=== PATIENT | female | born 1940 | race Caucasian/White ===

== ENCOUNTER 2020-01-14 10:33 | Inpatient (IN) | payer MEDICARE, MEDICAID ==
[~2020-01-14] VITALS: Ht 165.1 cm; Wt 79.0 kg
[~2020-01-14 10:33] MED LIST: ALEN70TA2; ALPR0.5T; ASPI81CH43; ATEN50TA; GEMF600T; OME20GT; PREMARIN; VALS160T51
[2020-01-14 11:40] LABS: Basophils # (auto) 0 10 ^3/uL (0-0.2); Eosinophils # (auto) 0.2 10 ^3/uL (0-0.8); Hemoglobin 11.9 g/dL (12.2-16.2); Lymphocytes # (auto) 1.5 10 ^3/uL (0.4-5.4); Nucleated Red Blood Cells % 0.1 %; White Blood Cell 5.7 10^3/uL (4.4-10.8)
[2020-01-14 11:42] LABS: Basophils % (auto) 0.6 % (0.0-2.0); Eosinophils % (auto) 2.8 % (0.0-7.0); Hematocrit 36.7 % (36.0-46.0); Lymphocytes % (auto) 26.2 % (10.0-50.0); Mean Corpuscular Hemoglobin 26.7 pg (28.0-32.0); Mean Corpuscular Hgb Conc. 32.5 g/dL (32.0-36.0); Mean Corpuscular Volume 82.2 fL (80.0-100.0); Monocytes # (auto) 0.5 10 ^3/uL (0-1.3); Monocytes % (auto) 9.1 % (0.0-12.0); Neutrophils # (auto) 3.5 10 ^3/uL (1.6-8.6); Neutrophils % (auto) 61.3 % (37.0-80.0); Platelet Count (auto) 229 10^3/uL (140-450); Red Blood Cells 4.47 10^6/uL (4.0-5.20); Red Cell Distribution Width 16.3 % (11.8-14.3)
[2020-01-14 12:19] LABS: Albumin 3.2 g/dL (3.4-5.0); Anion Gap 9 (5-15); Blood Urea Nitrogen 12 mg/dL (7-18); Calcium 9.3 mg/dL (8.5-10.1); Carbon Dioxide 24 mmol/L (21-32); Chloride 97 mmol/L (98-107); Glucose 87 mg/dL (74-106); Sodium 130 mmol/L (136-145)
[2020-01-14 12:26] LABS: Alanine Aminotransferase 19 U/L (13-56); Alkaline Phosphatase 89 U/L (45-117); Aspartate Aminotransferase 24 U/L (15-37); BUN/Creatinine Ratio 12.9; Bilirubin, Total 0.5 mg/dL (0.2-1.0); GFR African American 75 mL/min; GFR Non-African American 62 mL/min; Total Protein 6.8 g/dL (6.4-8.2)
[2020-01-14] MEDS ORDERED: ALBUTEROL SULF 2.5 MG/0.5ML(0.5%) NEB SOLN NEB PRN (15:30)
[2020-01-14] MEDS ORDERED: NITROGLYCERIN 0.4 MG SL TAB SL PRN (15:30)
[2020-01-14] MEDS ORDERED: DEXTROSE (50%) 50ML SYRG IV PRN (15:30)
[2020-01-14] MEDS ORDERED: ACETAMINOPHEN 500 MG TAB PO PRN (15:30)
[2020-01-14] MEDS ORDERED: TEMAZEPAM 15 MG CAP PO PRN (15:30)
[2020-01-14] MEDS ORDERED: MORPHINE SULF INJ 2 MG/ML SYRINGE 1ML IV PRN ×2 (15:30)
[2020-01-14] MEDS: SODIUM CHLORIDE 0.9% 1,000 ML IV SCH (15:50)
[2020-01-14] MEDS: InsuLIN REG 1unit/0.01ml Soln (100units/ml) SC SCH ×2 (17:55→22:00)
[2020-01-14] MEDS: ACCU-CHEK COMFORT CURVE STRIP VI SCH ×2 (17:55→22:04)
[2020-01-14] MEDS: ALBUTEROL SULF 2.5 MG/0.5ML(0.5%) NEB SOLN NEB SCH (18:00)
[2020-01-14] MEDS: IPRATROPIUM BROM 0.5 MG/2.5ML INH SOL NEB SCH (18:00)
[2020-01-14] MEDS: ONDANSETRON HCL 4 MG/2 ML VIAL IV PRN (20:01)
[2020-01-14] MEDS ORDERED: INFLUENZA QUAD 2020-2021 0.5 ML SYRG IM ONE (23:45)
[2020-01-15] VITALS (7 sets, daily range): BP systolic 125–167; BP diastolic 67–92
[2020-01-15] MEDS: traMADol HCL 50 MG TAB PO PRN (00:36)
[2020-01-15] MEDS: SODIUM CHLORIDE 0.9% 1,000 ML IV SCH ×2 (04:50→18:10)
[2020-01-15] MEDS ORDERED: DILT60TA27 PO (05:31)
[2020-01-15 05:36] LABS: Basophils # (auto) 0 10 ^3/uL (0-0.2); Basophils % (auto) 0.6 % (0.0-2.0); Eosinophils # (auto) 0.2 10 ^3/uL (0-0.8); Eosinophils % (auto) 4.2 % (0.0-7.0); Hematocrit 34.8 % (36.0-46.0); Hemoglobin 11.2 g/dL (12.2-16.2); Lymphocytes # (auto) 1.5 10 ^3/uL (0.4-5.4); Lymphocytes % (auto) 27.3 % (10.0-50.0); Mean Corpuscular Hemoglobin 26.6 pg (28.0-32.0); Mean Corpuscular Hgb Conc. 32.1 g/dL (32.0-36.0); Monocytes # (auto) 0.5 10 ^3/uL (0-1.3); Monocytes % (auto) 9.2 % (0.0-12.0); Neutrophils # (auto) 3.2 10 ^3/uL (1.6-8.6); Neutrophils % (auto) 58.7 % (37.0-80.0); Nucleated Red Blood Cells % 0.1 %; Platelet Count (auto) 208 10^3/uL (140-450); Red Blood Cells 4.19 10^6/uL (4.0-5.20); Red Cell Distribution Width 16.1 % (11.8-14.3); White Blood Cell 5.5 10^3/uL (4.4-10.8)
[2020-01-15] MEDS ORDERED: ROSU5TAB5 PO (05:37)
[2020-01-15] MEDS ORDERED: METF-370 PO (05:37)
[2020-01-15] MEDS ORDERED: ALEN1TAB32 PO (05:37)
[2020-01-15] MEDS ORDERED: FLUT1AER3 IN (05:37)
[2020-01-15] MEDS ORDERED: LOSA25TA38 PO (05:37)
[2020-01-15] MEDS ORDERED: APIX5TAB PO (05:37)
[2020-01-15] MEDS ORDERED: TEMA30CA PO (05:37)
[2020-01-15] MEDS ORDERED: GABA300C10 PO (05:37)
[2020-01-15] MEDS ORDERED: POTA10TA51 PO (05:37)
[2020-01-15] MEDS ORDERED: HCTZ25T PO (05:37)
[2020-01-15] MEDS ORDERED: MAGN400T40 PO (05:37)
[2020-01-15 05:56] LABS: Calcium 8.8 mg/dL (8.5-10.1)
[2020-01-15 06:02] LABS: Albumin 2.9 g/dL (3.4-5.0); BUN/Creatinine Ratio 16.1; Bilirubin, Total 0.3 mg/dL (0.2-1.0); Total Protein 6.1 g/dL (6.4-8.2)
[2020-01-15] MEDS: InsuLIN REG 1unit/0.01ml Soln (100units/ml) SC SCH ×4 (07:00→21:43)
[2020-01-15] MEDS: ACCU-CHEK COMFORT CURVE STRIP VI SCH ×4 (07:01→21:25)
[2020-01-15] MEDS: IPRATROPIUM BROM 0.5 MG/2.5ML INH SOL NEB SCH ×3 (07:02→21:42)
[2020-01-15] MEDS: ALBUTEROL SULF 2.5 MG/0.5ML(0.5%) NEB SOLN NEB SCH ×3 (07:02→21:42)
[2020-01-15] MEDS: cefTRIAXone 1GM/50ML D5W 50 ML IV SCH (10:10)
[2020-01-15] MEDS: ONDANSETRON HCL 4 MG/2 ML VIAL IV PRN ×3 (10:53→21:25)
[2020-01-15] MEDS: CLINDAMYCIN 600MG IV 50 ML IV SCH ×2 (15:37→21:24)
[2020-01-15 16:23] LABS: INR 1.01 (0.9-1.15); Partial Thromboplastin Time 27.6 sec (23.0-31.2)
[2020-01-16] VITALS (13 sets, daily range): BP systolic 123–196; BP diastolic 43–85
[2020-01-16] MEDS: ONDANSETRON HCL 4 MG/2 ML VIAL IV PRN ×4 (03:45→19:52)
[2020-01-16] MEDS: traMADol HCL 50 MG TAB PO PRN ×4 (03:52→19:52)
[2020-01-16 05:39] LABS: Basophils # (auto) 0 10 ^3/uL (0-0.2); Basophils % (auto) 0.4 % (0.0-2.0); Eosinophils # (auto) 0.1 10 ^3/uL (0-0.8); Hematocrit 35.5 % (36.0-46.0); Hemoglobin 11.5 g/dL (12.2-16.2); Lymphocytes # (auto) 1.2 10 ^3/uL (0.4-5.4); Mean Corpuscular Hemoglobin 26.7 pg (28.0-32.0); Mean Corpuscular Hgb Conc. 32.3 g/dL (32.0-36.0); Mean Corpuscular Volume 82.5 fL (80.0-100.0); Monocytes # (auto) 0.4 10 ^3/uL (0-1.3); Monocytes % (auto) 7.2 % (0.0-12.0); Neutrophils # (auto) 4.4 10 ^3/uL (1.6-8.6); Neutrophils % (auto) 70.4 % (37.0-80.0); Nucleated Red Blood Cells % 0.1 %; Platelet Count (auto) 226 10^3/uL (140-450); Red Blood Cells 4.31 10^6/uL (4.0-5.20); Red Cell Distribution Width 16.3 % (11.8-14.3); White Blood Cell 6.2 10^3/uL (4.4-10.8)
[2020-01-16 05:57] LABS: Calcium 9.2 mg/dL (8.5-10.1); Potassium 3.9 mmol/L (3.5-5.1)
[2020-01-16 06:03] LABS: INR 0.99 (0.9-1.15); Partial Thromboplastin Time 26.5 sec (23.0-31.2)
[2020-01-16] MEDS: IPRATROPIUM BROM 0.5 MG/2.5ML INH SOL NEB SCH ×4 (06:04→18:11)
[2020-01-16] MEDS: ALBUTEROL SULF 2.5 MG/0.5ML(0.5%) NEB SOLN NEB SCH ×4 (06:04→18:11)
[2020-01-16] MEDS: CLINDAMYCIN 600MG IV 50 ML IV SCH ×3 (06:35→21:41)
[2020-01-16] MEDS: InsuLIN REG 1unit/0.01ml Soln (100units/ml) SC SCH ×4 (06:35→21:26)
[2020-01-16] MEDS: ACCU-CHEK COMFORT CURVE STRIP VI SCH ×4 (06:35→21:41)
[2020-01-16] MEDS: LOSARTAN POTASSIUM 25 MG TAB PO SCH (06:57)
[2020-01-16] MEDS: SODIUM CHLORIDE 0.9% 1,000 ML IV SCH ×2 (07:30→21:25)
[2020-01-16] MEDS: cefTRIAXone 1GM/50ML D5W 50 ML IV SCH (08:57)
[2020-01-16] MEDS ORDERED: DexAMETHasone SOD PHOS 4 MG/1ML SDV INJ IV ONE (10:45)
[2020-01-16] MEDS ORDERED: PANTOPRAZOLE 40 MG/10 ML VIAL INJ IV ONE (10:45)
[2020-01-16] MEDS: TEMAZEPAM 15 MG CAP PO PRN (21:41)
[2020-01-16] MEDS: DexAMETHasone SOD PHOS 4 MG/1ML SDV INJ IV SCH (21:41)
[2020-01-17] MEDS: IPRATROPIUM BROM 0.5 MG/2.5ML INH SOL NEB SCH ×5 (00:08→23:55)
[2020-01-17] MEDS: ALBUTEROL SULF 2.5 MG/0.5ML(0.5%) NEB SOLN NEB SCH ×5 (00:08→23:55)
[2020-01-17] MEDS: traMADol HCL 50 MG TAB PO PRN ×3 (00:13→20:12)
[2020-01-17] MEDS: ONDANSETRON HCL 4 MG/2 ML VIAL IV PRN ×3 (00:13→20:12)
[2020-01-17] MEDS: CLINDAMYCIN 600MG IV 50 ML IV SCH (05:38)
[2020-01-17] MEDS ORDERED: cloNIDine HCL 0.1 MG TAB PO ONE (06:15)
[2020-01-17] MEDS: InsuLIN REG 1unit/0.01ml Soln (100units/ml) SC SCH ×4 (06:18→22:00)
[2020-01-17] MEDS: ACCU-CHEK COMFORT CURVE STRIP VI SCH ×4 (06:28→22:00)
[2020-01-17 08:42] VITALS: BP 160/77
[2020-01-17] MEDS: PANTOPRAZOLE 40 MG/10 ML VIAL INJ IV SCH (09:19)
[2020-01-17] MEDS: DexAMETHasone SOD PHOS 4 MG/1ML SDV INJ IV SCH ×2 (09:20→22:00)
[2020-01-17] MEDS: LOSARTAN POTASSIUM 25 MG TAB PO SCH (09:20)
[2020-01-17] MEDS: cefTRIAXone 1GM/50ML D5W 50 ML IV SCH (09:20)
[2020-01-17] MEDS: SODIUM CHLORIDE 0.9% 1,000 ML IV SCH ×2 (10:10→23:30)
[2020-01-17 12:16] VITALS: BP 132/76
[2020-01-17 16:44] VITALS: BP 128/68
[2020-01-17 17:12] VITALS: BP 128/68
[2020-01-17 22:00] VITALS: BP 150/67
[2020-01-17] MEDS: TEMAZEPAM 15 MG CAP PO PRN (22:05)
[2020-01-18] MEDS: traMADol HCL 50 MG TAB PO PRN ×4 (04:00→19:56)
[2020-01-18 05:00] VITALS: BP 156/74
[2020-01-18 05:29] LABS: Basophils # (auto) 0 10 ^3/uL (0-0.2); Basophils % (auto) 0.1 % (0.0-2.0); Eosinophils # (auto) 0 10 ^3/uL (0-0.8); Eosinophils % (auto) 0.1 % (0.0-7.0); Hematocrit 34.2 % (36.0-46.0); Hemoglobin 10.9 g/dL (12.2-16.2); Lymphocytes # (auto) 0.7 10 ^3/uL (0.4-5.4); Lymphocytes % (auto) 7.9 % (10.0-50.0); Mean Corpuscular Hemoglobin 26.5 pg (28.0-32.0); Mean Corpuscular Hgb Conc. 31.8 g/dL (32.0-36.0); Mean Corpuscular Volume 83.3 fL (80.0-100.0); Monocytes # (auto) 0.2 10 ^3/uL (0-1.3); Monocytes % (auto) 2.2 % (0.0-12.0); Neutrophils # (auto) 8.4 10 ^3/uL (1.6-8.6); Neutrophils % (auto) 89.7 % (37.0-80.0); Platelet Count (auto) 221 10^3/uL (140-450); Red Blood Cells 4.11 10^6/uL (4.0-5.20); Red Cell Distribution Width 16.9 % (11.8-14.3); White Blood Cell 9.4 10^3/uL (4.4-10.8)
[2020-01-18 05:46] LABS: Calcium 8.9 mg/dL (8.5-10.1); Potassium 4.3 mmol/L (3.5-5.1)
[2020-01-18 05:48] LABS: BUN/Creatinine Ratio 23.6
[2020-01-18] MEDS: ALBUTEROL SULF 2.5 MG/0.5ML(0.5%) NEB SOLN NEB SCH ×3 (05:50→19:17)
[2020-01-18] MEDS: IPRATROPIUM BROM 0.5 MG/2.5ML INH SOL NEB SCH ×3 (05:50→19:17)
[2020-01-18] MEDS ORDERED: DOCUSATE SOD 100 MG CAP PO PRN (06:00)
[2020-01-18] MEDS: ACCU-CHEK COMFORT CURVE STRIP VI SCH ×4 (06:14→22:01)
[2020-01-18] MEDS: InsuLIN REG 1unit/0.01ml Soln (100units/ml) SC SCH ×4 (06:14→22:00)
[2020-01-18 08:00] VITALS: BP 157/87
[2020-01-18 09:00] VITALS: BP 157/87
[2020-01-18] MEDS: cefTRIAXone 1GM/50ML D5W 50 ML IV SCH (09:22)
[2020-01-18] MEDS: LOSARTAN POTASSIUM 25 MG TAB PO SCH (09:23)
[2020-01-18] MEDS: DexAMETHasone SOD PHOS 4 MG/1ML SDV INJ IV SCH (09:23)
[2020-01-18] MEDS: PANTOPRAZOLE 40 MG/10 ML VIAL INJ IV SCH (09:23)
[2020-01-18] MEDS ORDERED: amLODIPine BESYLATE 5 MG TAB PO ONE (12:15)
[2020-01-18 13:00] VITALS: BP 161/92
[2020-01-18 16:59] VITALS: BP 195/97
[2020-01-18] MEDS ORDERED: cloNIDine HCL 0.1 MG TAB PO ONE (17:00)
[2020-01-18] MEDS: TEMAZEPAM 15 MG CAP PO PRN (22:00)
[2020-01-18] MEDS: cloNIDine HCL 0.1 MG TAB PO SCH (22:00)
[2020-01-18] MEDS: DexAMETHasone 4 MG TAB PO SCH (22:01)
[2020-01-18 22:16] VITALS: BP 153/80
[2020-01-19] MEDS: IPRATROPIUM BROM 0.5 MG/2.5ML INH SOL NEB SCH ×2 (00:16→06:42)
[2020-01-19] MEDS: ALBUTEROL SULF 2.5 MG/0.5ML(0.5%) NEB SOLN NEB SCH ×2 (00:16→06:42)
[2020-01-19 04:30] VITALS: BP 148/77
[2020-01-19] MEDS: ACCU-CHEK COMFORT CURVE STRIP VI SCH (07:00)
[2020-01-19] MEDS: InsuLIN REG 1unit/0.01ml Soln (100units/ml) SC SCH (07:00)
[2020-01-19 08:45] VITALS: BP 155/76
[2020-01-19] MEDS: traMADol HCL 50 MG TAB PO PRN (09:21)
[2020-01-19] MEDS: cloNIDine HCL 0.1 MG TAB PO SCH (09:21)
[2020-01-19] MEDS: DexAMETHasone 4 MG TAB PO SCH (09:21)
[2020-01-19] MEDS: cefTRIAXone 1GM/50ML D5W 50 ML IV SCH (09:22)
[2020-01-19] MEDS: LOSARTAN POTASSIUM 25 MG TAB PO SCH (09:22)
[2020-01-19] MEDS ORDERED: PANTOPRAZOLE 40 MG TAB PO SCH (10:00)
[2020-01-19] MEDS ORDERED: amLODIPine BESYLATE 5 MG TAB PO SCH (10:00)
[2020-01-19 12:40] VITALS: BP 124/64
== END 2020-01-19 15:00 | disposition home or self-care (01) | DRG 987 ==
LOC: ER 10:33 → EDBD 10:33 → TELE 15:17 → TELE-EAST 18:55 → TELE-CENTR 01-15 13:21
PROVIDERS: ADMIT Internal Medicine; ATTEND Internal Medicine
PROC: 07B13ZX Excision of Right Neck Lymphatic, Percutaneous Approach, Diagnostic (ICD-10-PCS; principal; 2020-01-16)
DX: C34.91 Malignant neoplasm of unspecified part of right bronchus or lung (principal); J69.0 Pneumonitis due to inhalation of food and vomit; J96.00 Acute respiratory failure, unspecified whether with hypoxia or hypercapnia; E87.1 Hypo-osmolality and hyponatremia; C79.31 Secondary malignant neoplasm of brain; J44.0 Chronic obstructive pulmonary disease with (acute) lower respiratory infection; C79.01 Secondary malignant neoplasm of right kidney and renal pelvis; R59.0 Localized enlarged lymph nodes; D64.9 Anemia, unspecified; E11.9 Type 2 diabetes mellitus without complications; K21.9 Gastro-esophageal reflux disease without esophagitis; H53.2 Diplopia; E78.5 Hyperlipidemia, unspecified; F17.210 Nicotine dependence, cigarettes, uncomplicated; I10 Essential (primary) hypertension; E27.8 Other specified disorders of adrenal gland; F41.9 Anxiety disorder, unspecified; M54.9 Dorsalgia, unspecified; I25.10 Atherosclerotic heart disease of native coronary artery without angina pectoris; Z20.828 Contact with and (suspected) exposure to other viral communicable diseases; Z80.1 Family history of malignant neoplasm of trachea, bronchus and lung; Z82.49 Family history of ischemic heart disease and other diseases of the circulatory system; Z86.011 Personal history of benign neoplasm of the brain; Z90.710 Acquired absence of both cervix and uterus; Z95.0 Presence of cardiac pacemaker
CPT/HCPCS: 10022; 36415; 36600; 70470; 71045; 71250; 74176; 76536; 80048; 80053; 82805; 82962; 83036; 83605; 83735; 84484; 85025; 85610; 85730; 87040; 87426; 93005; 94640; C9113; G0378; J0696; J1100; J1815; J2405; J3490